=== PATIENT | male | born 1950 | race Caucasian/White ===

== ENCOUNTER 2017-04-07 17:43 | Emergency (ER) | payer OTHER, MEDICAID ==
[~2017-04-07] VITALS: Ht 177.8 cm; Wt 90.0 kg
[2017-04-07] MEDS ORDERED: SODIUM CHLORIDE 0.9% 1,000 ML IV ONE (21:05)
[2017-04-07 21:51] LABS: CARBON DIOXIDE 31 mEq/L (21-32); CHLORIDE 97 mEq/L (98-107); CREATINE KINASE 262 IU/L (39-308); ETHANOL BLOOD < 10 mg/dL; TROPONIN I 0.12 ng/mL (0.00-0.04)
[2017-04-07 21:54] LABS: CLARITY URINE CLEAR (CLEAR); COLOR URINE YELLOW (YELLOW); KETONES URINE NEGATIVE (NEGATIVE); LEUKOCYTE ESTERASE URINE NEGATIVE (NEGATIVE); NITRITE URINE NEGATIVE (NEGATIVE); OCCULT BLOOD URINE TRACE (NEGATIVE); PROTEIN URINE NEGATIVE (NEGATIVE); SPECIFIC GRAVITY URINE 1.006 (1.005-1.030)
[2017-04-07 22:33] LABS: *AMPHETAMINES SCREEN URINE NEGATIVE (NEGATIVE); *BARBITURATES SCREEN URINE NEGATIVE (NEGATIVE); *BENZODIAZEPINES SCREEN URINE NEGATIVE (NEGATIVE); *COCAINE SCREEN URINE NEGATIVE (NEGATIVE); CANNABINOID URINE SCREEN NEGATIVE (NEGATIVE); METHADONE URINE SCREEN PRESUMTIVE POSITIVE (NEGATIVE); OPIATES URINE SCREEN NEGATIVE (NEGATIVE); PHENCYCLIDINE URINE SCREEN NEGATIVE (NEGATIVE)
[2017-04-07 22:51] LABS: BASOPHILS % 0.3 % (0.0-2.0); HEMATOCRIT. 34.7 % (42.0-52.0); HEMOGLOBIN. 11.8 g/dL (14.0-18.0); LYMPHOCYTES % 9.7 % (20.0-50.0); MEAN CORPUSCULAR HEMOGLOBIN 34.6 pg (28.0-32.0); MEAN PLATELET VOLUME 8.7 fl (7.4-10.4); MONOCYTES % 11.6 % (2.0-8.0); NEUTROPHILS % 76.4 % (40.0-76.0); RED CELL DISTRIBUTION WIDTH 14.8 % (11.6-14.6)
[2017-04-08 00:50] VITALS: BP 110/55
[2017-04-09 10:26] LABS: PLATELET 46 x1000/uL (130-400)
== END 2017-04-08 01:55 | disposition home or self-care (01) ==
LOC: EDBD 18:10 → ER 18:10
DX: G93.40 Encephalopathy, unspecified (principal); T40.3X5A Adverse effect of methadone, initial encounter; L03.116 Cellulitis of left lower limb; L03.115 Cellulitis of right lower limb; F11.10 Opioid abuse, uncomplicated; Y92.89 Other specified places as the place of occurrence of the external cause
CPT/HCPCS: 36415; 80053; 80305; 81001; 82550; 83690; 84443; 84484; 85025; 93005; 93970; 96360; 96361; 99285; G0482; J7030